=== PATIENT | male | born 1970 | race Caucasian/White ===

== ENCOUNTER → 2020-01-08 15:56 | Outpatient (CLI) | payer BC, SELFPAY ==
--- NOTE | 2020-01-08 16:15 | RAD_ITS ---
STUDY: X-RAY - RIGHT SHOULDER REASON FOR EXAM: Male, 49 years old. ROTATOR CUFF SYNDROME TECHNIQUE: 4 view(s) of the shoulder. COMPARISON: None. FINDINGS: Normal glenohumeral articulation. Normal acromioclavicular joint. Normal acromion. Normal humeral head and visualized proximal humerus. The soft tissue structures are unremarkable. Normal visualized pulmonary apex. RAD/Shoulder min 2 Views IMPRESSION: Normal x-ray examination of the shoulder. Electronically Signed: Julio Carnes, at 15:54 EDT , Service support ,
--- NOTE | 2020-01-08 16:15 | RAD_ITS ---
STUDY: X-RAY - PELVIS AND BILATERAL HIPS REASON FOR EXAM: Male, 49 years old. BACK PAIN THAT RADIATES TO BOTH HIPS, NO KNOWN INJURY TECHNIQUE: AP view of the pelvis.? 2 views of the right hip, and 2 views of the left hip were obtained. COMPARISON: None. FINDINGS: There is a non-specific bowel gas pattern. Normal visualized soft tissue structures. Normal bilateral iliac wings, sacroiliac joints and visualized sacrum. Normal bilateral superior and inferior pubic rami. Normal pubic symphysis. Normal bilateral ischial tuberosities. Normal visualized right femoral head. Normal right acetabulum. Normal right hip joint. Normal visualized left femoral head. Normal left acetabulum. Normal left hip joint. RAD/Hips B/L min 2 views w/ Pelvis IMPRESSION: Normal x-ray examination of the pelvis and bilateral hips. Electronically Signed: Julio Carnes, at 15:30 EDT , Service support ,
--- NOTE | 2020-01-08 16:20 | RAD_ITS ---
STUDY: X-RAY - LUMBAR SPINE REASON FOR EXAM: Male, 49 years old. BACK PAIN THAT RADIATES TO BOTH HIPS, NO KNOWN INJURY TECHNIQUE: 3 view(s) of the lumbar spine were obtained. COMPARISON: None FINDINGS: Normal lumbar lordosis. There is no substantial scoliosis. There is a normal alignment of the vertebrae. There is endplate spondylosis at the L3-L4 and L4-L5 levels. Normal disc space heights. The soft tissue structures are unremarkable. RAD/Lumbar Spine 2 or 3 Views IMPRESSION: Degenerative changes of the spine, as detailed above. Electronically Signed: Julio Carnes, at 15:53 EDT , Service support ,
[2020-01-08 16:39] LABS: Absolute Lymphocyte Count 2.51 X10^3/uL (0.83-4.51); Absolute Neutrophil Count 5.4 X10^3/uL (2.0-7.7); Basophil# 0.03 X10^3/uL; Basophil% 0.3 % (0-1); Eosinophil# 0.13 X10^3/uL; Eosinophils% 1.5 % (0-5); Hematocrit 44.2 % (40-54); Hemoglobin 14.3 g/dL (13.0-16.5); Lymphocyte # 2.51 X10^3/ul (4.0); Lymphocyte % 28.9 % (19-41); Mean Corp Hgb Conc 32.4 g/dL (32-36); Mean Corpuscular Hgb 28.1 pg (27.0-32.0); Mean Platelet Vol. 9.5 fl (6.2-12.0); Monocyte# 0.56 X10^3/uL; Monocyte% 6.4 % (0-10); NRBC Flagged by Analyzer 0 % (0-5); Neutrophil # 5.43 X10^3/uL (2.7-7.7); Neutrophil % 62.6 % (47-70); Platelet Count 386 K/mm3 (150-450); RBC Distribution Width CV 12.6 % (11.6-14.6); RBC Distribution Width SD 39.3 fl (35.1-43.9); Red Blood Count 5.08 M/mm3 (4.6-6.2); White Blood Count 8.7 K/mm3 (4.4-11.0)
[2020-01-08 17:00] LABS: ALB/GLOB Ratio 0.8 RATIO (0.9-2.4); AST(SGOT) 20 U/L (15-37); Alanine Aminotransfer ALT/SGPT 49 U/L (16-61); Albumin, Serum 3.5 g/dL (3.2-5.0); Alkaline Phosphatase 102 U/L (45-117); Anion Gap 5 (5-15); BUN 18 mg/dL (7-18); BUN/Creat Ratio 16.8 RATIO (10-20); Chloride 106 mmol/L (98-107); Creatinine, Serum 1.07 mg/dL (0.70-1.30); EST Glomerular Filtration Rate 78 mL/min (>60); Est Glom Filt Rate - Afr Amer 94 mL/min (>60); Globulin 4.5 g/dL (2.2-4.2); Glucose 90 mg/dL (74-106); Potassium 3.9 mmol/L (3.5-5.1); Sodium Level 141 mmol/L (136-145)
== END ==
LOC: POLAB3 16:00 → RAD 16:14
PROVIDERS: PCP Family Medicine Geriatric Medicine; Referring Provider Family Medicine Geriatric Medicine; Visit Provider Family Medicine Geriatric Medicine
DX: M25.551 Pain in right hip (principal); M25.552 Pain in left hip; M54.5 Low back pain; M75.101 Unspecified rotator cuff tear or rupture of right shoulder, not specified as traumatic; R53.83 Other fatigue
CPT/HCPCS: 36415; 72100; 73030; 73521; 80053; 84443; 85025

== ENCOUNTER → 2020-02-09 10:35 | Outpatient (CLI) | payer BC, SELFPAY | PROVIDERS: PCP Family Medicine Geriatric Medicine; Visit Provider Family Medicine Geriatric Medicine | DX: I10 Essential (primary) hypertension (principal) | CPT/HCPCS: 36415; 84443 ==

== ENCOUNTER 2021-10-18 14:45 | Emergency (ER) | payer BC, SELFPAY ==
[2021-10-18 14:46] VITALS: BP 191/100; PULSE 86; RESP 18; TEMP 36.1; O2SAT 97; BMI 30.3
--- NOTE | 2021-10-18 14:56 | CT_ITS ---
STUDY: CT ABDOMEN AND PELVIS WITH CONTRAST REASON FOR EXAM: Male, 51 years old. rectal bleeding RADIATION DOSAGE (If Supplied By Facility): CTDIvol = ( 12.21 ) mGy, DLP = ( 1223.38 ) mGycm TECHNIQUE: Transaxial images were obtained from the dome of the diaphragm to the symphysis pubis without oral contrast. IV 100mL Isovue-[id number] was administered. Sagittal and coronal images were reconstructed. Individualized dose optimization techniques were used for this CT. COMPARISON: None. FINDINGS: The visualized lung bases are unremarkable. The visualized portions of the heart are within normal limits. Normal liver. The gallbladder is contracted. Normal spleen. Normal pancreas. Normal bilateral adrenal glands. Normal right kidney. Normal left kidney. Normal visualized stomach. Normal small intestine. Normal colon. There is non-visualization of the appendix. Normal abdominal aorta. Normal inferior vena cava. Normal retroperitoneum. Normal urinary bladder. Normal abdominal wall. Normal osseous structures. CT/Abdomen/Pelvis W IV Cont ONLY IMPRESSION: Normal enhanced CT of the abdomen and pelvis. Electronically Signed: Renato Gtz MD at 15:45 EDT ,
--- NOTE | 2021-10-18 14:57 | ED.VIS.GI ---
HPI HPI - GI History of Present Illness Chief Complaint: GI Bleed Detail of Chief Complaint: Rectal bleeding that started about a week ago Informant: patient Narrative Narrative: Presents the emergency department complaint of rectal bleeding that started a week ago. Patient states that he is having bright red blood per rectum every time he uses the bathroom and has a bowel movement. He denies any significant abdominal pain. He denies rectal pain. Patient states he had similar episode years ago but did not seek care for it and it resolved. He tells me he had a colonoscopy about 2 years ago and it was unremarkable. Patient's mother has diverticulitis. Patient denies any fevers. Patient not on blood thinners. Patient has no other medical history. Prior similar symptoms: Yes PFSH PFSH Home Medications NK 10/18/21 [History Last Taken Unknown] Allergy/AdvReac Type Severity Reaction Status Date / Time No Known Allergies Allergy Verified 10/18/21 14:48 Surgical History (Updated 10/18/21 @ 14:56 by Domi Lobo) Hx of hand surgery Hx of hernia repair Social History Smoking Status: Never smoker ROS ROS ED Constitutional Constitutional ED: Reports systems reviewed and no addt'l complaints, except as documented; Denies body ache(s), change in weight or chills Eyes Eyes: Denies acute decrease in peripheral vision, change in vision, double vision or loss of vision ENT ENT ED: Reports none; Denies ear pain, lip swelling, loss taste/smell, neck pain, otalgia or sore throat Cardiovascular Cardiovascular: Reports none; Denies abdominal pain, chest pain with activity, leg edema, lightheadedness, palpitations, rapid heart rate or syncope Respiratory/Chest Respiratory/Chest: Reports none; Denies change in mental status, dry cough, dyspnea, hemoptysis, shortness of breath at rest or shortness of breath with exertion Gastrointestinal Gastrointestinal: Reports none and other Details: Bright red blood per rectum ; Denies abdominal pain, change in stool character, diarrhea, hematemesis, hematochezia, melena, rectal bleeding or vomiting Genitourinary Genitourinary ED: Reports none; Denies abdominal discomfort, anuria, dysuria, genital pain or polyuria Musculoskeletal Musculoskeletal: Reports none; Denies arthralgias, back pain, difficulty walking, extremity pain, muscle weakness or myalgias Integumentary Reports none; Denies abscess or rash Neurologic Neurologic: Reports none; Denies abnormal gait, confusion, focal weakness, frequent falls, headache(s), loss of vision, numbness, paresthesias, radicular pain, vertigo or weakness Psychiatric Psychiatric: Reports systems reviewed and no addt'l complaints, except as documented and none; Denies behavioral changes, confusion, difficulty concentrating, hallucinations, suicidal ideation, tactile hallucinations or visual hallucinations Endocrine Endocrinology: Denies none, cold intolerance, excessive sweating, fatigue or heat intolerance Hematologic/Lymphatic Hematologic/Lymphatic: Reports none; Denies anemia, easy bleeding or easy bruising Allergic/Immunologic Allergic/Immunologic ED: Denies as per HPI, none, lip swelling, mouth swelling, throat swelling, tongue swelling or hives EXAM Physical Exam Const Vital Signs: 10/18/21 14:46 10/18/21 14:58 Temperature 97 F L Temperature Source Temporal Pulse Rate 86 Pulse Rate [Lying] 78 Pulse Rate [Sitting (for 1 minute prior to obtaining)] 77 Pulse Rate [Standing (for 1 minute prior to obtaining)] 80 Respiratory Rate 18 Blood Pressure 191/100 H Blood Pressure [Lying] 137/74 H Blood Pressure [Sitting (for 1 minute prior to obtaining)] 133/73 H Blood Pressure [Standing (for 1 minute prior to obtaining)] 165/81 H Blood Pressure Mean 130 Blood Pressure Mean [Lying] 95 Blood Pressure Mean [Sitting (for 1 minute prior to obtaining)] 93 Blood Pressure Mean [Standing (for 1 minute prior to obtaining)] 109 Pulse Ox 97 Oxygen Delivery Method Room Air Positive well nourished and well developed General Appearance ED: well developed and NAD HEENT Reports TM's clear and moist mucous membranes normocephalic and atraumatic; Negative for trauma or tenderness Tympanic Membrane ED: Yes TM's clear Eyes PERRL and EOMs intact bilaterally General Eye ED: Negative for pale conjunctiva or scleral icterus Neck no lymphadenopathy, supple and no JVD General: Negative for tenderness Chest Wall inspection of chest normal and palpation of chest normal Chest: Negative for tenderness Resp normal respiratory effort and clear to auscultation bilaterally Effort and Inspection: Negative for respiratory distress or pain with movement Auscultation: Negative for rhonchi, wheezes or diminished lung sounds Cardio regular rate, regular rhythm, S1 normal heart sound, S2 normal heart sound and no murmurs Peripheral Pulses: pulses 2+ throughout GI normal to inspection, nondistended, normoactive bowel sounds, soft to palpation, non-tender, non-distended and no masses GI Narrative: On rectal exam no hemorrhoids noted. No fissures noted. No masses palpated on digital rectal exam. There was small amount of brown stool with a slight reddish tinge. Back/Spine no CVA tenderness and no thoracic nor lumbar tenderness Extremity normal to inspection General Extremety ED: Negative for edema General Extremity: Negative for edema Neuro oriented x3, CN's II-XII intact bilaterally, no sensory deficits noted and gait normal Sensorium / Orientation: awake, alert, oriented to person, oriented to place and oriented to time Motor Exam: strength 5/5 throughout and strength abnormal Psych mental status grossly normal Skin no rashes or lesions noted and no wounds MDM MDM MDM Narrative Medical decision making narrative: IV line established on arrival. Orthostatic blood pressures were normal. Patient had normal H&H and normal lactate. CT scan of the abdomen pelvis with IV contrast was normal. At this point etiology of the rectal bleeding is unclear. There was small amount of gross blood noted on his underwear. At this point I feel he can be discharged home and have him follow-up with GI for possible repeat colonoscopy if symptoms persist. Patient advised to return if worse bleeding with clots, abdominal pain, fever, or condition worsen anyway. Lab Data Attestation: I reviewed the patient's lab results. Labs: Laboratory Results - last 24 hr 10/18/21 10/18/21 10/18/21 15:09 15:09 15:09 WBC 7.6 RBC 4.80 Hgb 14.2 Hct 41.2 MCV 85.8 MCH 29.6 MCHC 34.5 RDW Std Deviation 38.7 RDW Coeff of William 12.5 Plt Count 260 MPV 9.3 Immature Gran % (Auto) 0.100 Neut % (Auto) 59.7 Lymph % (Auto) 30.9 [place] % (Auto) 7.1 Eos % (Auto) 1.8 Baso % (Auto) 0.4 Absolute Neuts (auto) 4.5 Absolute Lymphs (auto) 2.35 Nucleated RBC % 0 Sodium 142 Potassium 3.9 Chloride 107 Carbon Dioxide 30.0 Anion Gap 5 BUN 18 Creatinine 1.18 Estim Creat Clear Calc 82.76 Est GFR (MDRD) Af Amer 83 Est GFR (MDRD) Non-Af 69 BUN/Creatinine Ratio 15.3 Glucose 91 Lactic Acid 0.8 Calcium 8.9 Radiography Diagnostic Testing: Clinical Impression(s) from Imaging Studies Abdomen/Pelvis CT 10/18/21 14:56 IMPRESSION: Normal enhanced CT of the abdomen and pelvis. Electronically Signed: Renato Gtz MD at 15:45 EDT , Discharge Plan Triage Chief Complaint: GI Bleed ED Provider: Cate Arias Dx/Rx/DC Orders Clinical Impression: Acute lower gastrointestinal bleeding Instructions: ED Lower GI Bleeding (Stable) Prescriptions: No Action NK RF: 0 Primary Care Provider: Tamela Katz Referrals: Tamela Katz MD [Primary Care Provider] - Salvador Auguste DO [STAFF PHYSICIAN] - 3-5 Days Disposition Disposition: Home, Self Care
[2021-10-18 14:58] VITALS: BP 133/73; BP 137/74; BP 165/81; PULSE 77; PULSE 78; PULSE 80
[2021-10-18] MEDS: 0.9% Normal Saline 1,000 ML 125 ML IV (15:05)
[2021-10-18 15:14] LABS: Absolute Lymphocyte Count 2.35 X10^3/uL (0.83-4.51); Absolute Neutrophil Count 4.5 X10^3/uL (2.0-7.7); Basophil# 0.03 X10^3/uL; Basophil% 0.4 % (0-1); Eosinophil# 0.14 X10^3/uL; Eosinophils% 1.8 % (0-5); Hematocrit 41.2 % (40-54); Hemoglobin 14.2 g/dL (13.0-16.5); Lymphocyte # 2.35 X10^3/ul (0.83-4.51); Lymphocyte % 30.9 % (19-41); Mean Corp Hgb Conc 34.5 g/dL (32-36); Mean Corpuscular Hgb 29.6 pg (27.0-32.0); Mean Corpuscular Volume 85.8 fL (80-94); Mean Platelet Vol. 9.3 fl (6.2-12.0); Monocyte# 0.54 X10^3/uL; Monocyte% 7.1 % (0-10); NRBC Flagged by Analyzer 0 % (0-5); Neutrophil # 4.53 X10^3/uL (2.7-7.7); Neutrophil % 59.7 % (47-70); Platelet Count 260 K/mm3 (150-450); RBC Distribution Width CV 12.5 % (11.6-14.6); RBC Distribution Width SD 38.7 fl (35.1-43.9); White Blood Count 7.6 K/mm3 (4.4-11.0)
[2021-10-18 15:32] LABS: Anion Gap 5 (5-15); BUN 18 mg/dL (7-18); BUN/Creat Ratio 15.3 RATIO (10-20); Calcium,Total 8.9 mg/dL (8.5-10.1); Chloride 107 mmol/L (98-107); Creatinine, Serum 1.18 mg/dL (0.70-1.30); EST Glomerular Filtration Rate 69 mL/min (>60); Est Glom Filt Rate - Afr Amer 83 mL/min (>60); Estimated Creatinine Clearance 82.76 ml/min; Glucose 91 mg/dL (74-106); Potassium 3.9 mmol/L (3.5-5.1); Sodium Level 142 mmol/L (136-145)
[2021-10-18 15:37] LABS: Lactic Acid 0.8 mmol/L (0.4-1.9)
[2021-10-18 16:38] VITALS: BP 155/71; PULSE 69; RESP 18; O2SAT 96
[2021-10-18 16:45] VITALS: BP 155/71; PULSE 69; RESP 18; O2SAT 96
== END 2021-10-18 16:50 | disposition home or self-care (01) ==
PROVIDERS: Emergency Provider Emergency Medicine; PCP Family Medicine; Visit Provider Emergency Medicine
DX: K92.2 Gastrointestinal hemorrhage, unspecified (principal)
CPT/HCPCS: 74177; 80048; 82274; 83605; 85025; 96360; 96361; 99284; J7030; Q9967; A4216